=== PATIENT | female | born 1990 ===

== ENCOUNTER 2024-12-10 13:07 | Outpatient (CLI) | payer OTHER, SELFPAY ==
--- NOTE | 2024-12-10 13:00 | CRLHL7_ITS ---
For Patients: As a result of the Century Cures Act, medical imaging exams and procedure reports are released immediately into your electronic medical record. You may view this report before your referring provider. If you have questions, please contact your health care provider. INDICATION: First trimester scan, establish dates. COMPARISON: None. TECHNIQUE: Real-time willams-scale imaging of the pelvis was performed. FINDINGS: Sonographic imaging demonstrates a single living intrauterine gestation. The embryo demonstrates a regular cardiac rate measuring 171 beats per minute. The embryo`s crown-rump length measurement of 2.6 cm corresponds to a gestational age of 9 weeks 3 days with a sonographic due date of 07/12/2025. There is a normal-appearing yolk sac. There are no gross abnormalities noted within the embryo at this early state of development. The gestational sac has a normal appearance. There is a 2.7 x 1.3 x 2.6 cm perigestational hemorrhage. The amount of fluid within the sac appears appropriate for gestational age. The cervix is closed. No fibroids appreciated. There are no suspicious fluid collections noted in the cul-de-sac. Corpus luteal cyst left ovary measures 3.9 x 3.3 x 3.3 cm. The right ovary is not visualized. IMPRESSION: Single living intrauterine with sonographic gestational age 9 weeks 3 days and sonographic due date of 07/12/2025. Subchorionic hemorrhage measures 2.7 x 1.3 x 2.6 cm. Dictated by Eros Navarrete MD @ 12/13/2024 7:02:37 AM (Electronically Signed)
== END 2024-12-10 13:08 | disposition home or self-care (01) ==
LOC: US 13:11
PROVIDERS: Visit Provider Advanced Practice Midwife
DX: Z34.91 Encounter for supervision of normal pregnancy, unspecified, first trimester (principal); O20.9 Hemorrhage in early pregnancy, unspecified; Z3A.09 9 weeks gestation of pregnancy
CPT/HCPCS: 76801

== ENCOUNTER 2024-12-10 14:12 | Outpatient (CLI) | payer OTHER, SELFPAY | END 2024-12-10 14:13 | disposition home or self-care (01) | PROVIDERS: Visit Provider Advanced Practice Midwife | DX: Z34.81 Encounter for supervision of other normal pregnancy, first trimester (principal); Z67.30 Type AB blood, Rh positive | CPT/HCPCS: 83020; 83021; 84443; 85660; 86592; 86703; 86704; 86706; 86762; 86787; 86803; 86850; 86900; 86901; 87086; 87340 ==

== ENCOUNTER 2025-04-20 09:34 | Outpatient (CLI) | payer OTHER, SELFPAY | END 2025-04-20 09:35 | disposition home or self-care (01) | LOC: NFLDREF 04-23 17:46 | PROVIDERS: Visit Provider Advanced Practice Midwife | DX: Z34.92 Encounter for supervision of normal pregnancy, unspecified, second trimester (principal); Z3A.27 27 weeks gestation of pregnancy | CPT/HCPCS: 86592 ==

== ENCOUNTER 2025-05-26 13:08 | Outpatient (CLI) | payer OTHER, SELFPAY ==
--- NOTE | 2025-05-26 15:51 | W.PM.LAC.MC ---
Consult Note - Mom Date of Visit Date of visit: 05/26/25 Reason for consultation: Assistance Needed ( visit for mom with history of poor experience) Visit Code: Visit Patient's Information Phone number: [phone] : 3 Para: 1 Allergies Algolysin Allergy (Intermediate, Uncoded 05/18/25 11:08) Rash Mother's Medical History: Medical History (Updated 05/04/25 @ 10:58 by Alessandro Calero CNM) Gastritis ?K29.70 - Gastritis, unspecified, without bleeding (ICD-10) Breast/Nipple Condition Breast Information: Breasts are symmetrical with rounded lower quadrants, intramammary distance is less than 1.5 inches. No erythema. Nipples are inverted/flat prior to stimulation. With a vertical compression, nipples invert bilaterally; with a horizontal compression, nipples do every slightly - bottom more than the top. Mom shared the following from first child's journey: While in the delivery room, before attempting to latch the baby to her breast, the nurse said hold on, I'll be right back. And came back with a nipple shield and just put it on Gema's breast without ever trying to latch baby without the shield. Gema never felt sure if baby was feeding well. She was discharged with baby on day 2 of life and on day 3 of life baby was in [facility], diagnosed with dehydration and readmitted to the NICU. She is worried about this happening again. When discussing how to appropriately apply a nipple shield, she's not sure she was doing it correctly (inverting the shield prior to placing on her breast). She was triple feeding for several months, had mastitis twice in the first 2 months of , and after 2-3 months stopped trying to breastfeed and pumped and bottled for 10 mos - baby was able to get breastmilk for 1 year. She would like to try again but is concerned she won't be able to without the shield, worried about mastitis, worried about not feeding baby well and reports has a lot of anxiety about trying again, AND she wants to try again. Discussed the challenges of a baby with inverted/flat nipples; sometimes they can learn over time but nipple turcios are often helpful in the early days. Also, it is perfectly fine to try without the shield as some babies can figure it out. Discussed hand expression to help be sure baby is getting what she needs while working on the process. Discussed she can also try using the breast pump 1-2 times/day for 3-5 minutes to begin helping to draw out her nipples - may or may not help but if her Telephone Sterilizer says it's ok, it's worth trying. Discussed given the shape of her nipple, football hold might be more successful as her nipple everts a bit more with a horizontal compression that a vertical compression. Nipples were measured at 21mm bilaterally; recommend 23-25mm flange size. Breast Shape: Round Engorgement: No Follow-Up Suggested follow up: Appointment as needed Recommend mom be seen by provider for:: IBCLC when she delivers Time Spent Time spent with patient (min): 45 Meds Home Medications and Allergies Home Medications ?Medication ?Instructions ?Recorded ?Confirmed ?Type cholecalciferol (vitamin D3) 25 25 mcg PO QDAY 12/10/24 05/18/25 History mcg (1,000 unit) capsule omega-3 fatty acids 1,000 mg 1,000 mg PO QDAY 12/10/24 05/18/25 History capsule vits no.126-ferrous fum tab PO DAILY 12/10/24 05/18/25 History 28 mg iron-folic acid 800 mcg tablet (Classic ) calcium carbonate (Calcium 600) 600 mg PO QDAY 01/12/25 05/18/25 History Blood Glucose Meter #1 ea 04/20/25 05/04/25 Rx Test Strips #100 ea 04/20/25 05/04/25 Rx lancets #100 ea 04/20/25 05/04/25 Rx Allergies Allergy/AdvReac Type Severity Reaction Status Date / Time Algolysin Allergy Intermediate Rash Uncoded 05/18/25 11:08
== END 2025-05-26 13:09 | disposition home or self-care (01) ==
LOC: OB LAC 13:09
PROVIDERS: Visit Provider Obstetrics & Gynecology
DX: Z39.1 Encounter for care and examination of lactating mother (principal)
CPT/HCPCS: G0463

== ENCOUNTER 2025-06-22 11:18 | Outpatient (CLI) | payer OTHER, SELFPAY | END 2025-06-22 11:19 | disposition home or self-care (01) | LOC: NFLDREF 06-27 21:22 | PROVIDERS: Visit Provider Midwife | DX: Z34.83 Encounter for supervision of other normal pregnancy, third trimester (principal) | CPT/HCPCS: 87081; 87653 ==

== ENCOUNTER 2025-07-14 03:33 | Inpatient (IN) | payer OTHER, SELFPAY ==
[2025-07-14] VITALS (14 sets, daily range): BP systolic 101–124; BP diastolic 54–75; PULSE 78–90; RESP 16–19; TEMP 36.4–36.8; O2SAT 97; BMI 29.3
--- NOTE | 2025-07-14 03:52 | W.PM.LDBA ---
Subjective History of Present Illness Date Seen: 07/14/25 Narrative: Patient is being admitted to Labor and Delivery for active labor. She is a 35 year old at 39 2/7 weeks gestation. Her full history and physical was dictated by me on 06/29/2025. Please see this for details. Reports good movement, no LOF, some bloody show. She is supported in labor by her doulas. Her and child are outside the room. Specific Issues/Plans : Artemio Son: Jose It is a girl! H&P completed by Ean 06/29/25 # Advanced maternal age? 35-39 years old at delivery? Recommend Genetic Screening Test- completed low risk ? 20-week Level II detailed ultrasound with MFM?order - completed no concerns # Failed 1 hour glucose, declined 3 hour, 2 weeks of home testing normal. # Thrombocytopenia plts 130 at 28 weeks, normal at NOB plts 117 at 34 wks needs plts on admit # Family hx thyroid disorder (Father and brother). TSH 3.76 08/2024. TSH at NOB: 2.37 Ultrasounds: First tri scan 12/10/24-Single living intrauterine with sonographic gestational age 9 weeks 3 days and sonographic due date of 07/12/2025. Subchorionic hemorrhage measures 2.7 x 1.3 x 2.6 cm. Lev 2 Anatomy scan 02/18/2025- no anomalies seen, EFW 94%, normal amniotic fluid level, cervix long and closed by transabdominal imaging COVID: initial series 2020, booster: declined Flu: 09/02/2024 TDAP: 05/04/25 32wk Mental Health: 34wk Hgb: OB - Problem Based A/P Additional Plan (1) AMA (advanced maternal age) multigravida 35+: Status: Acute (2) Thrombocytopenia affecting : Status: Acute Plan ASSESSMENT:?? 35 at 39 2/7 weeks gestation?? complicated by:??thrombocytopenia, AMA Labor type: Spontaneous,Active labor?? Category 1 FHR pattern.??? Labor complicated by: none?? GBS negative? PLAN:?? 1. Routine intrapartum cares as ordered. Continue with expectant management?? 2. Monitoring per policy, intermittent??per policy 3. Planning unmedicated . Desires water . Consent signed. Hep C negative. Candidate for analgesia of choice.??? 4. Patient encouraged to reposition and ambulate to promote physiologic labor and .?? 5. Anticipate ? OB Exam Physical Exam Vital signs: Temp Pulse Resp BP 97.6 F 78 19 124/75 07/14/25 03:38 07/14/25 03:38 07/14/25 03:38 07/14/25 03:38 Narrative: Vitals Reviewed Constitutional:? Alert and oriented x3 HEENT:? Normocephalic, atraumatic Neck:? Supple Abdomen:? Soft, nontender, and gravid. Vertex by Haris's, confirmed with cervical exam. Extremities:? No edema or erythema Cervix: 7 cm/80%/0 station/vertex per nursing, verified by bedside US NST: 140 bpm/moderate variability/accelerations present/decelerations absent/contractions q 2-4 min x 80sec
[2025-07-14 04:03] LABS: Hematocrit* 37.5 % (33.0-51.0); Hemoglobin* 12.7 gm/dL (12.0-16.0); Immature Granulocytes Pct Auto 1.0 %; Mean Corpuscular HGB Conc 34 gm/dL (32-36); Mean Corpuscular Hemoglobin 33 pg (26-34); Mean Corpuscular Volume 96 fL (80-100); RDW Coefficient of Variation % 13.4 % (11.5-15.5); Red Blood Count* 3.91 m/uL (4.00-5.20); White Blood Count* 12.41 K/uL (4.50-11.00)
[2025-07-14 04:05] LABS: Immature Granulocytes Abs Auto 0.10 K/uL (0.00-0.30); Lymphocytes Absolute Auto 1.50 K/uL (0.90-2.90); Slide Review Reflex No
[2025-07-14] MEDS: LIDOCAINE 1 % PF 30 ML INJECTION (06:51)
--- NOTE | 2025-07-14 07:24 | W.PM.OBVAGDE ---
OB Procedure Vag Delivery Mother Details Mother Details: The patient is a 35 year-old, 3, Para 1, admitted on 07/14/25 at Days gestation. Admission Date: 07/14/25 Additional Details Amniotic Membrane Status: AROM Amniotic Membrane Rupture Date: 07/14/25 Amniotic Membrane Rupture Time: 06:11 Amniotic Membrane Fluid Description: Clear (terminal mec noted) Analgesia/Anesthesia Type: Nitrous Oxide Waterbirth: No Pitcoin: Yes (for [facility] only) Intrapartal Events: None Labor Onset: 01:00 Complete: 05:30 Pushin:30 Heart: heart tones during second stage were checked intermittently. Baseline 130s-140s, no audible decels. Delivery Details Delivery Date: 07/14/25 Delivery Time: 06:33 Route of delivery: Infant Gender: Female Viability: Alive; Heart Rate Present Position at Delivery: OA Delivery Details: Patient was admitted for REYNOLD and progressed normally. AROM noted at 0611 with clear fluid. Patient was complete at 0530 and pushing at 0530. She did beautifully, though struggled to push. After getting out of the tub she was able to take control and push her daughter out with our persistence. She did request an episiotomy, but at the time, that would not be helpful since the baby still needed to get under the pubic bone completely. of a viable female at 0633 in Left side lying. Vertex delivered OA. No nuchal cord or shoulder dystocia. Body delivered easily and without incident. Infant passed to mothers abdomen with a vigorous cry. Terminal mec noted. Cord was clamped and cut at > 5 minutes. APGARS were 8 at one minute and 9 at five minutes respectively. Intact placenta with a 3 vessel cord delivered spontaneously at 0642. Fundus firm. 2nd degree identified and repaired in typical fashion. QBL 165 cc. Mother and baby stable; mother plans to breastfeed. Infant weight pending.? 1 Minute Interval Total Score: 8 5 Minute Interval Total Score: 9 Additional Details Shoulder Dystocia: No Placenta Delivery Time: 06:42 Placental Delivery Description: Spontaneous Delivery repair: Vicryl (under 1% lido and nitrous) Procedure Done: Global Blood Loss: 165 Laceration: Perineal - 2nd Degree Episiotomy Description: None Blood Loss Measurement Type: QBL Bakri Used: No Sponge/Need Count Correct: Yes Cord Vessel Description: 3 Vessels Event Summary Status: Mother and were stable after delivery. Disposition: floor
[2025-07-14] MEDS: IBUPROFEN 600 MG TABLET PO ×3 (08:02→22:59)
[2025-07-15 02:03] VITALS: BP 106/66; PULSE 80; RESP 16; O2SAT 95
[2025-07-15 06:17] LABS: Hemoglobin* 11.8 gm/dL (12.0-16.0)
--- NOTE | 2025-07-15 08:21 | PM.OBDSVD1 ---
DS: Providers Provider Date Seen: 07/15/25 Date of admission: 07/14/25 03:33 Primary care physician: Not a Local Provider Admitting Clinician: Kim Montgomery CNM Attending Physician on discharge: Nikki Borja APRN, CNM DS: Diagnosis Discharge Diagnosis (1) care and examination immediately after delivery: Status: Acute (2) Lactating mother: Status: Acute (3) No support from wider family: Status: Acute (4) Thrombocytopenia affecting : Status: Acute Exam Narrative: Exam Narrative: GENERAL APPEARANCE:? normal affect, alert, no distress MOOD:? appropriate CHEST:? clear to auscultation HEART:? regular rate and rhythm ABDOMEN:? soft, non-tender the uterine fundus is At Umbilicus, Midline and is appropriate for the stage of recovery. PERINEUM:? mild edema of the perineum, there is a Perineal Laceration,?2nd degree, that is healing well. EXTREMITIES:? normal and no edema Const: Vital Signs, click to edit/add: Vital Signs - 24 hr 07/14/25 08:23 07/14/25 08:23 07/14/25 08:38 Temperature Pulse Rate 87 90 Pulse Rate [Pulse Oximeter] Respiratory Rate 19 Blood Pressure 101/64 105/54 L Blood Pressure [Ri ght Arm] Pulse Oximetry Oxygen Delivery Me thod 07/14/25 08:38 07/14/25 09:26 07/14/25 09:41 Temperature 98.3 F Pulse Rate 82 84 Pulse Rate [Pulse Oximeter] Respiratory Rate 19 Blood Pressure 108/63 103/57 L Blood Pressure [Ri ght Arm] Pulse Oximetry Oxygen Delivery Me thod 07/14/25 13:40 07/14/25 16:55 07/14/25 20:07 Temperature 98.0 F 98.0 F 97.7 F Pulse Rate Pulse Rate [Pulse Oximeter] 87 78 88 Respiratory Rate 18 18 16 Blood Pressure Blood Pressure [Ri ght Arm] 113/70 105/70 102/63 Pulse Oximetry 97 97 97 Oxygen Delivery Me thod Room Air Room Air Room Air 07/15/25 02:03 Temperature Pulse Rate Pulse Rate [Pulse Oximeter] 80 Respiratory Rate 16 Blood Pressure Blood Pressure [Ri ght Arm] 106/66 Pulse Oximetry 95 Oxygen Delivery Me thod Room Air Documenting provider has reviewed patient's vital signs: yes OB - DS: Summary Hospital Course Hospital Course: Gema is a 35 y.o. G 3 P 2 who was admitted to [facility] & D for spontaneous onset of labor. ?She had a NVD that was uncomplicated. The patient feels well. ?The pain is well controlled with current medications. ?She has no new complaints. ?She is breast feeding and reports things are going well. the patient has done well.? Vitals have been stable.? She has remained afebrile.? Has a good appetite, is tolerating a general diet. ?She is voiding without difficulty.? She is passing gas and has not had a bowel movement.? She is ambulating and denies any dizziness.? Has small amount of rubra lochia. Problems: none Discharge home with baby.? Follow up in 2 weeks and 6 weeks.? , may see if needed? Hgb 11.8. ?? For pain control of perineum, breast and pelvic pain, take 600 mg Ibuprofen every 6 hours as needed by mouth or 1000 mg acetaminophen (Tylenol) every 6 hours by mouth as needed. You can alternate these so you are taking something every 3 hours as needed. A heating pad can also be used for your abdomen or breasts. You may also take docusate sodium up to twice daily to soften your stools and help to prevent constipation. You may wean off of it when your stools return to normal.? Peripartum Data Infant delivery method: Vaginal Laceration description: Perineal - 2nd Degree complications: none [place] Infant Gender: Female Discharge Plan: Home Status at Discharge Functional status at discharge: independent ambulation Overall status at discharge: patient is progressing back to baseline Time Spent with Patient Time attestation: Total time spent providing and/or coordinating discharge services: Time spent: Less than 30 minutes Discharge Plan Discharge Disposition: Home, Self-Care Date of Admission: 07/14/25 03:33 Attending Provider on Discharge: Nikki Borja Primary Care Provider: Provider,Not a Local Condition: Stable Anticipated Discharge Date/Time: 07/15/25 12:00 Discharge Medications: New acetaminophen 500 mg Tablet 1,000 mg PO Q6H PRNQty: 0 0RF docusate sodium 100 mg Capsule 100 mg PO DAILY Qty: 90 0RF ibuprofen 600 mg Tablet 600 mg PO Q6H PRNQty: 60 0RF Continued Classic 28 mg iron- 800 mcg tablet PO DAILY omega-3 fatty acids 1,000 mg capsule 1,000 mg PO QDAY cholecalciferol (vitamin D3) 25 mcg (1,000 unit) capsule 25 mcg PO QDAY calcium carbonate [Calcium 600] 600 mg calcium (1,500 mg) tablet 600 mg PO QDAY Discontinued (DME) lancets Misc See Rx Instructions .MEDSUPPLY Qty: 100 0RF Rx Instructions: Test blood sugar 4 times daily. (DME) Test Strips Misc See Rx Instructions .MEDSUPPLY Qty: 100 0RF Rx Instructions: Test blood sugar 4 times daily. (DME) Blood Glucose Meter Misc See Rx Instructions .MEDSUPPLY Qty: 1 0RF Rx Instructions: As directed Discharge Orders: Discharge Order (Routine); Ordered 07/15/25 Ordered By: Nikki Borja Patient Education: OB Over the Counter Medication Information, OB Vaginal/Breast Feeding Additional Instructions: Discharge instructions were reviewed with the patient including signs and symptoms of infection and home going medications Nothing vaginally for 6 weeks: no tampons or intercourse Off Work or School for 6 weeks 2-week visit: discuss infant feeding concerns, review control options and screen for anxiety/depression. 6-week visit for an annual exam. consultation services are available to all mothers and babies for the first year after delivery.? To make an appointment, please call [phone]. Activity Level: Activity as Tolerated Discharge Diet: Regular Follow Up Appointments: [facility] [Provider Group] Forms: Patient Belongings, MyHealth Info Instructions
[2025-07-15 09:00] VITALS: BP 98/62; PULSE 81; RESP 16; TEMP 36.7; O2SAT 97
[2025-07-15] MEDS: IBUPROFEN 600 MG TABLET PO (10:07)
[2025-07-15] MEDS: DOCUSATE SODIUM 100 MG CAPSULE PO (10:10)
[2025-07-15] MEDS: ACETAMINOPHEN 500 MG TABLET 1000 MG PO (14:25)
== END 2025-07-15 16:36 | disposition home or self-care (01) | DRG 807 ==
LOC: OB OUT 03:33 → OB 03:33
PROVIDERS: Admitting Provider Midwife; Visit Provider Midwife
DX: O99.12 Other diseases of the blood and blood-forming organs and certain disorders involving the immune mechanism complicating childbirth (principal); Z37.0 Single live birth; D69.6 Thrombocytopenia, unspecified; O70.1 Second degree perineal laceration during delivery; Z3A.39 39 weeks gestation of pregnancy
CPT/HCPCS: 36415; 85018; 85025; 86592; 86850; 86900; 86901; A9270; J2003; J2590

== ENCOUNTER 2025-07-27 15:38 | Outpatient (CLI) | payer OTHER, SELFPAY ==
--- NOTE | 2025-07-27 16:27 | W.PM.LAC.MC ---
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.10 - Genital varices in , unspecified trimester (ICD-10) Thrombocytopenia affecting ?O99.119 - Other diseases of the blood and blood-forming organs and certain disorders involving the immune mechanism complicating , unspecified trimester (ICD-10) ?D69.6 - Thrombocytopenia, unspecified (ICD-10) Gastritis ?K29.70 - Gastritis, unspecified, without bleeding (ICD-10) Delivery Information Delivery type: Vaginal Gestational Age: 39+2 Gestational Weight For Age: AGA Weight: 3.4 kg Baby's Information Baby's Age at Visit: 13 days Baby's Provider or Clinic: [facility] Jaundice: No Past Experience Past Experience: Yes Current Frequency of Day Feedings: every 2-3 hours, some cluster feeding in the evening Both Breasts: Yes Suck: strong Latch: usually with nipple shield Length of Time: 10-15 minutes Goals: aleast 1 year Pumping Pumping: Yes Quantity Pumped: using Haakaa lisa, gets 2-3 oz, can get 3 oz in 5 minutes w/Spectra pump Supplementing EBM Supplement: Yes (taking 1- oz after as had brickdust urine last week) Baby Elimination Number of Wet Diapers a Day: ea feeding Number of BM a Day: almost every feeding; yellow, seedy Breast/Nipple Condition Breast Information: Breasts are symmetrical with rounded lower quadrants, intramammary distance is less than 1.5 inches. No erythema. Nipples are supple, everted prior to feeding. Breast Shape: Round Engorgement: No Maternal Nipple Condition - Left: Flat Nipple (but starting to familia) Maternal Nipple Condition - Right: Flat Nipple (but starting to familia) Sore Nipples: No Baby Assessment Skin: Normal Tongue/frenulum: Normal/elastic Palate: Average Lips: Relaxed and Symmetrical Jaw Alignment: Symmetrical Mucosa: [place], moist Onsite Observation Pre-Feed weight: 3.518 kg (had already nursed some while waiting for appt) Post-Feed weight: 3.57 kg Milk Transferred (mL): 52 Position: Cross cradle Attachment/latch-on achieved: With difficulty Suck pattern: Suck burst and normal rest Swallow: Audible, consistent Behavior following feed: Alert, content Pre-Nursing Left Nipple: Within Normal Limits Pre-Nursing Right Nipple: Within Normal Limits Post-Nursing Left Nipple: Within Normal Limits Post-Nursing Right Nipple: Within Normal Limits Assessments/Interventions Assessments/Interventions: Worked with mom/taught asymmetrical latch technique for a wide, deep latch. Able to get baby latched without nipple shield with this technique. Initially baby latched on mom's right breast, suckling noted, but minimal swallows heard. Had transferred 22 ml of milk in about 15 minutes. Mom relatched baby more asymmetrically, deeper latch noted, stronger pulls noted, swallows hear and baby transferred 30 ml of milk in about 6 minutes. Mom able to notice the difference in the latch. Discussed to assess this with future feedings; ok to skip shield. Education provided: Early feeding cues to maximize timing of latching, Asymmetric latch technique for wide/deep latch to increase milk, Transfer for baby and increase comfort for mom, Supply/demand nature of milk supply, Use of nipple shield (ok to nurse without shield; babe will likely get a deeper latch without and get more milk), Pumping for milk management and Milk collection, storage Feeding Plan: Breastfeed every 2-3 hours; offer supplement until clinic appt tomorrow, but reassured baby is gaining very well, is beyond birthweight, and if she doesn't want the bottle after it's ok not to force it. Offer 1/2 oz after feeding if desired for peace of mind (first child was readmitted to hospital with dehydration so understanding parents concern). Follow-Up Suggested follow up: Appointment in 1-3 days (for follow up) Time Spent Time spent with patient (min): 75 Meds Home Medications and Allergies Home Medications ?Medication ?Instructions ?Recorded ?Confirmed ?Type cholecalciferol (vitamin D3) 25 25 mcg PO QDAY 12/10/24 07/27/25 History mcg (1,000 unit) capsule omega-3 fatty acids 1,000 mg 1,000 mg PO QDAY 12/10/24 07/27/25 History capsule vits no.126-ferrous fum tab PO DAILY 12/10/24 07/27/25 History 28 mg iron-folic acid 800 mcg tablet (Classic ) calcium carbonate (Calcium 600) 600 mg PO QDAY 01/12/25 07/27/25 History acetaminophen 500 mg tablet 1,000 mg (2 x 500 mg) PO Q6H PRN 07/15/25 07/27/25 Rx #0 tabs ibuprofen 600 mg tablet 600 mg PO Q6H PRN #60 tabs 07/15/25 07/27/25 Rx docusate sodium 100 mg capsule 100 mg PO DAILY PRN 07/27/25 History Allergies Allergy/AdvReac Type Severity Reaction Status Date / Time Algolysin Allergy Intermediate Rash Uncoded 07/27/25 13:38
== END 2025-07-27 15:39 | disposition home or self-care (01) ==
LOC: OB LAC 15:39
PROVIDERS: Visit Provider Advanced Practice Midwife
DX: Z39.1 Encounter for care and examination of lactating mother (principal)
CPT/HCPCS: G0463

== ENCOUNTER 2025-08-01 13:12 | Outpatient (CLI) | payer OTHER, SELFPAY ==
--- NOTE | 2025-08-01 15:44 | W.PM.LAC.MF ---
Follow-Up Note: Mom Date of visit Date of visit: 08/01/25 Reason for consultation: Other (f/u for latch and milk transfer) Visit Code: Visit Patient's Information Allergies Algolysin Allergy (Intermediate, Uncoded 07/27/25 13:38) Rash Delivery Information Delivery type: Vaginal Gestational Age: 39+2 Gestational Weight For Age: AGA Weight: 3.4 kg Last Weight: 3.518 kg Baby's Information Baby's name: Jeanette Ely Baby's Age at Visit: 18 days Current Frequency of Day Feedings: every 2-3 hrs Frequency of Night Feedings: 4 hr stretch Both Breasts: Yes Suck: strong Latch: wide, deep, comfortable Length of Time: 15-20 min ea side Pumping Pumping: Yes (30-40 ml ea feed with Haakaa lisa) Supplementing EBM Supplement: Yes (1 bottle/day, about 3 oz) Formula Supplement: No Baby Elimination Number of Wet Diapers a Day: ea feeding Number of BM a Day: 7-8/day Breast/Nipple Assessment Breast/Nipple Assessment: Breasts are symmetrical with rounded lower quadrants, intramammary distance is less than 1.5 inches. No erythema. Nipples are supple, everted prior to feeding. Breast Shape: Round Engorgement: No Maternal Nipple Condition - Left: Flat Nipple (but everting more with feedings) Maternal Nipple Condition - Right: Flat Nipple (but everting more with feedings) Sore Nipples: No Onsite Observation Pre-feed weight: 3.662 kg (in of 144gm in 5 days; average of 29 gm/day) Post-Feed weight: 3.72 kg Milk Transferred (mL): 58 Pre-Nursing Left Nipple: Within Normal Limits Pre-Nursing Right Nipple: Within Normal Limits Post-Nursing Left Nipple: Within Normal Limits Post-Nursing Right Nipple: Within Normal Limits Assessments/Interventions Assessments/Interventions: Repeat visit with mom and baby who is now 18 days old. Mom has a history of difficulty latching her first baby to the breast due to flat nipples and this baby is doing much better so far. Of note, baby was crying all the way to the clinic so mom pulled over and gave the baby 1/2 oz of EBM prior to this appointment. Mom latched baby to the RIGHT side and she had a wide latch, taking in much of the areola; lips were flanged and mom was comfortable. She nursed for 15 minutes and transferred 46 ml of milk. Mom was using breast compression for most of the early feeding; discussed letting baby nurse on her own once she gets going for feeding and then use breast compression to encourage feeding longer to help her develop strong suckling skills. Mom switched her to her LEFT side, attempted to latch without the shield and despite a wide, deep latch baby would not engage in suckling. Mom then applied the nipple shield and baby took to nursing. She nursed 12 minutes and transferred another 12 ml. Benitae was very content and looking around the room and at mom after the feeding. Total milk for feeding 73 ml including the 15 ml before getting to the clinic. Plan: Continue to nurse baby every 2-3 hours, discussed cluster feedings expected in the evening hours and longer sleep stretches at night. With the longer sleep stretch at night, more feedings are needed during the day. Mom has been always starting baby on her RIGHT breast, discussed alternating the starting side with each feeding to keep milk supply more even. Mom has also been putting on the Haakaa in suction mode at the start of the feeding; discussed using milk catch mode when nursing on the first breast and then suction mode if she wants when she switches sides to keep the milk easier for the baby to get at the breast. Education provided: Early feeding cues to maximize timing of latching, Asymmetric latch technique for wide/deep latch to increase milk, Transfer for baby and increase comfort for mom, Supply/demand nature of milk supply, Need for frequent stimulation/milk removal, Use of nipple shield and Pumping for milk management Follow-Up Suggested follow up: Appointment as needed Time Spent Time spent with patient (min): 75 Meds Home Medications and Allergies Home Medications ?Medication ?Instructions ?Recorded ?Confirmed ?Type cholecalciferol (vitamin D3) 25 25 mcg PO QDAY 12/10/24 07/27/25 History mcg (1,000 unit) capsule omega-3 fatty acids 1,000 mg 1,000 mg PO QDAY 12/10/24 07/27/25 History capsule vits no.126-[id number] fum tab PO DAILY 12/10/24 07/27/25 History 28 mg iron-folic acid 800 mcg tablet (Classic ) calcium carbonate (Calcium 600) 600 mg PO QDAY 01/12/25 07/27/25 History acetaminophen 500 mg tablet 1,000 mg (2 x 500 mg) PO Q6H PRN 07/15/25 07/27/25 Rx #0 tabs ibuprofen 600 mg tablet 600 mg PO Q6H PRN #60 tabs 07/15/25 07/27/25 Rx docusate sodium 100 mg capsule 100 mg PO DAILY PRN 07/27/25 History Allergies Allergy/AdvReac Type Severity Reaction Status Date / Time Algolysin Allergy Intermediate Rash Uncoded 07/27/25 13:38
== END 2025-08-01 13:13 | disposition home or self-care (01) ==
PROVIDERS: Visit Provider Obstetrics & Gynecology
DX: Z39.1 Encounter for care and examination of lactating mother (principal)
CPT/HCPCS: G0463